=== PATIENT | female | born 1985 | race Two or more races ===

== ENCOUNTER 2020-08-08 17:43 | Inpatient (IN) | payer MEDICAID ==
[~2020-08-08] VITALS: Ht 165.1 cm; Wt 162.8 kg
[~2020-08-08 17:43] MED LIST: CLINDAMYCIN HC300 MG ORAL; IBUPROFEN600 MG ORAL; NORCO 5-325 TA1 EACH ORAL
[2020-08-08 18:08] VITALS: BP 159/93
[2020-08-08 18:46] LABS: APPEARANCE,URINE CLOUDY; BILIRUBIN, URINE NEGATIVE (NEGATIVE); COLOR,URINE YELLOW; GLUCOSE, URINE (UA) 4+ (NEGATIVE); KETONES,URINE 1+ (NEGATIVE); LEUKOCYTE ESTERASE ,URINE 1+ (NEGATIVE); NITRITE,URINE NEGATIVE (NEGATIVE); PH,URINE 5 (4.5-8.0); PROTEIN,URINE 3+ (NEGATIVE); UROBILINOGEN,URINE NORMAL MG/DL (0.0-1.0)
[2020-08-08] MEDS ORDERED: Ketorolac 30mg Inj IM ONE (19:00)
--- NOTE | 2020-08-08 19:59 | Emergency Room Report ---
History of Present Illness General Chief Complaint: Abdominal Pain Source: Patient (Renea Maldonado) Present Illness HPI 35-year-old female presents to the emergency department complaining of 10 out of 10 severity left-sided flank pain x3 days. Patient reports she has not taken any medication in an attempt to relieve her symptoms. She denies strenuous activities. Patient reports pain is significantly exacerbated upon palpation or movement of the torso. She denies cough, fevers, chills, abdominal pain or tenderness. Patient denies hematuria, dysuria, urinary frequency or urgency. Patient reports she is on her menstrual cycle. She denies . She denies history of renal calculi. She denies midline spinal tenderness or pain. She denies nausea or vomiting. She denies rashes. Denies numbness tingling or loss of sensation or gross motor movements of the extremities, incontinence of bowel or bladder. Denies CP, Palpitations, LOC, AMS, dizziness, Changes in Vision, weakness or a sudden severe headache. Denies PMhx. reports DM in her family. Denies family hx of cancer. (Renea Maldonado) Allergies: Coded Allergies: PENICILLINS (Unverified Allergy, Unknown, 09/28/14) COVID-19 Screening Contact w/high risk pt: No Experienced COVID-19 symptoms?: No COVID-19 Testing performed ANALYTICAL CLERK: No (Renea Maldonado) Patient History Past Medical History: see triage record Past Surgical History: none Pertinent Family History: none Last Menstrual Period: 08/08/2020 Now: No Reviewed Nursing Documentation: PMH: Agreed; PSxH: Agreed (Renea Maldonado) Nursing Documentation-PMH Past Medical History: No Stated History (Renea Maldonado) Review of Systems All Other Systems: negative except mentioned in HPI (Renea Maldonado) Physical Exam Vital Signs Date Time Temp Pulse Resp B/P (MAP) Pulse Ox O2 Delivery O2 Flow Rate FiO2 08/08/20 17:45 97.2 105 19 159/93 (115) 97 Room Air Sp02 EP Interpretation: reviewed, normal General Appearance: obese Head: normocephalic, atraumatic Eyes: bilateral eye normal inspection, bilateral eye PERRL ENT: hearing grossly normal, normal voice Neck: full range of motion Respiratory: chest non-tender, lungs clear, normal breath sounds, speaking full sentences Cardiovascular #1: regular rate, rhythm, no edema Gastrointestinal: normal bowel sounds, non tender, soft, non-distended, no guarding, overweight Rectal: deferred Genitourinary: normal inspection, CVA tenderness (L) Musculoskeletal: back normal, normal range of motion, gait/station normal, tender - TTP in the left flank area to superficial and deep palpation Neurologic: alert, motor strength/tone normal, oriented x3, sensory intact, responsive, speech normal Psychiatric: judgement/insight normal Skin: no rash, normal color Lymphatic: no adenopathy (Renea Maldonado) Medical Decision Making PA Attestation Dr. Almaguer is my supervising Physician whom patient management has been discussed with. (Renea Maldonado) Diagnostic Impression: Primary Impression: Retroperitoneal mass ER Course 35-year-old female presents to the emergency department complaining of 10 out of 10 severity left-sided flank pain x3 days. Patient reports she has not taken any medication in an attempt to relieve her symptoms. She denies strenuous activities. Patient reports pain is significantly exacerbated upon palpation or movement of the torso. She denies cough, fevers, chills, abdominal pain or tenderness. Patient denies hematuria, dysuria, urinary frequency or urgency. Patient reports she is on her menstrual cycle. She denies . She denies history of renal calculi. She denies midline spinal tenderness or pain. She denies nausea or vomiting. She denies rashes. Denies numbness tingling or loss of sensation or gross motor movements of the extremities, incontinence of bowel or bladder. Denies CP, Palpitations, LOC, AMS, dizziness, Changes in Vision, weakness or a sudden severe headache. Denies PMhx. reports DM in her family. Denies family hx of cancer. Ddx considered but are not limited to Diverticulitis, acute appendicitis, diarrhea,UC, PUD, GE, pancreatitis, gallstone, kidney stone, pyelonephritis, UTI, obstruction. Vital signs: are WNL, pt. is afebrile H&PE are most consistent with Left flank pain, most likely MSK, will r/o pyelo and calculi. ORDERS: - UA: 5+ blood, 4+ Protein , elevated glucose and 1+ ketones. Elevated WBC's as well . few bacteria vs squamous, --- urine will reflux to culture. - CT abdomen and pelvis no contrast: Large mass in the left upper quadrant in the retroperitoneal space displacing the spleen and the left kidney -CBC, CMP, Lipase: Pending at time of sign out. ED INTERVENTIONS: -- Lidoderm Tp -Toradol 30mg IM -IV access and 1 L NS bolus -4 mg of morphine DISPOSITION: at this time pt. will be admitted for intractable pain and abdominal mass. Pt. signed out to attending physician pending labs and accepting internal medicine physician. (eRnea Maldonado) ER Course I personally evaluated the patient and agree with the above assessment and plan. Patient admitted to [facility] in stable condition. (Benedict Almaguer M.D.) CT/MRI/US Diagnostic Results CT/MRI/US Diagnostic Results : Imaging Test Ordered: - CT abdomen and pelvis no contrast: Impression " IMPRESSION: 1. Large left upper abdominal retroperitoneal mass suspicious for neoplasm. 2. Hepatic steatosis. 3. Cholelithiasis without acute cholecystitis. 4. Ventral abdominal wall hernia containing fat and omental vessels. ." --Per official radiology report- Please see report for specific details. (Renea Maldonado) Last Vital Signs Date Time Temp Pulse Resp B/P (MAP) Pulse Ox O2 Delivery O2 Flow Rate FiO2 08/08/20 18:08 100 19 Room Air 08/08/20 18:08 97.2 159/93 97 Status: improved (Renea Maldonado) Disposition: ADMITTED INPATIENT Condition: Serious Signed Out To: Dr. Almaguer (Renea Maldonado) Renea Maldonado Aug 08, 2020 19:59 Benedict Almaguer M.D. Aug 08, 2020 22:28
--- NOTE | 2020-08-08 20:26 | Diagnostic Imaging Report ---
EXAM: CT Abdomen and Pelvis Without Intravenous Contrast CLINICAL HISTORY: PAIN TECHNIQUE: Axial computed tomography images of the abdomen and pelvis without intravenous contrast. CTDI is 83 mGy and DLP is 3241 mGy-cm. One or more of the following dose reduction techniques were used: automated exposure control, adjustment of the mA and/or kV according to patient size, use of iterative reconstruction technique. COMPARISON: No relevant prior studies available. FINDINGS: ABDOMEN: Liver: Diffuse low-attenuation in the liver. Hepatomegaly. Gallbladder and bile ducts: Gallstones in the lumen and neck. No ductal dilation. Pancreas: See below. Spleen: See below. Adrenals: Unremarkable. No mass. Kidneys and ureters: See below. Stomach and bowel: Mild colonic diverticulosis without acute diverticulitis. No obstruction. PELVIS: Appendix: No findings to suggest acute appendicitis. Bladder: Unremarkable. No stones. Reproductive: Unremarkable as visualized. ABDOMEN and PELVIS: Intraperitoneal space: Unremarkable. No free air. No significant fluid collection. Retroperitoneal space: Large soft tissue retroperitoneal mass in the left upper quadrant measuring approximately 14.9 x 14.0 x 20.0 cm in transverse, AP and craniocaudal dimensions. This displaces the left kidney anteriorly. It displaces the body and color pancreas superiorly. It compresses the spleen laterally. This extends posteriorly and insinuates along the left hemidiaphragm. Bones/joints: Degenerative changes in the sacroiliac joints. Degenerative disc disease in the spine. No acute fracture. No dislocation. Soft tissues: Moderate sized ventral abdominal wall hernia containing fat and omental vessels. Vasculature: Unremarkable. No abdominal aortic aneurysm. Lymph nodes: Unremarkable. No enlarged lymph nodes. IMPRESSION: 1. Large left upper abdominal retroperitoneal mass suspicious for neoplasm. 2. Hepatic steatosis. 3. Cholelithiasis without acute cholecystitis. 4. Ventral abdominal wall hernia containing fat and omental vessels. EXAM: CT Chest Without Intravenous Contrast CLINICAL HISTORY: PAIN TECHNIQUE: Axial computed tomography images of the chest without intravenous contrast. CTDI is 83 mGy and DLP is 3241 mGy-cm. One or more of the following dose reduction techniques were used: automated exposure control, adjustment of the mA and/or kV according to patient size, use of iterative reconstruction technique. COMPARISON: No relevant prior studies available. FINDINGS: Lungs: There is some mild mosaic attenuation in the lungs. Subsegmental atelectasis in the right upper lobe and left lung base. No lung consolidation. Pleural space: Unremarkable. No pneumothorax. No significant effusion. Heart: Unremarkable. No cardiomegaly. No significant pericardial effusion. Bones/joints: Unremarkable. No acute fracture. No dislocation. Soft tissues: Unremarkable. Vasculature: Unremarkable. No thoracic aortic aneurysm. Lymph nodes: Unremarkable. No enlarged lymph nodes. Upper abdomen: Refer to the abdomen CT regarding the partially visualized mass in the left upper quadrant and along the left hemidiaphragm posteriorly. IMPRESSION: No acute disease.
[2020-08-08] MEDS ORDERED: HYDROcodone/Acetamin 5/325 tab ORAL ONE (20:30)
[2020-08-08] MEDS ORDERED: Morphine Sulfate 4mg/ml Inj (IV USE ONLY) IVP ONE (20:45)
[2020-08-08 21:00] VITALS: BP 140/89
[2020-08-08 21:01] LABS: BASOPHILS % (AUTO) 0.8 % (0.0-2.0); EOSINOPHILS % (AUTO) 1.3 % (0.0-3.0); HEMATOCRIT 47.1 % (37.0-47.0); HEMOGLOBIN 15.3 G/DL (12.0-16.0); LYMPHOCYTES % (AUTO) 43.2 % (20.0-45.0); MEAN CORPUSCULAR VOLUME 86 FL (80-99); MONOCYTES % (AUTO) 3.8 % (1.0-10.0); NEUTROPHILS % (AUTO) 50.8 % (45.0-75.0); PLATELET COUNT 335 K/UL (150-450); RED BLOOD COUNT 5.48 M/UL (4.20-5.40); RED CELL DISTRIBUTION WIDTH 13.8 % (11.6-14.8); WHITE BLOOD COUNT 9.1 K/UL (4.8-10.8)
[2020-08-08 21:14] LABS: ANION GAP 9 mmol/L (5-15); BLOOD UREA NITROGEN 13 mg/dL (7-18); CALCIUM 8.6 MG/DL (8.5-10.1); CARBON DIOXIDE 26 MMOL/L (21-32); CHLORIDE 102 MMOL/L (98-107); CREATININE 0.8 MG/DL (0.55-1.30); POTASSIUM 3.6 MMOL/L (3.5-5.1); SODIUM 137 MMOL/L (136-145)
[2020-08-08 21:19] LABS: ALANINE AMINOTRANSFERASE 28 U/L (12-78); ALBUMIN 3.2 G/DL (3.4-5.0); ALBUMIN/GLOBULIN RATIO 0.6 (1.0-2.7); ALKALINE PHOSPHATASE 91 U/L (46-116); ASPARTATE AMINO TRANSFERASE 15 U/L (15-37); BILIRUBIN,TOTAL 0.5 MG/DL (0.2-1.0)
[2020-08-08 23:00] VITALS: BP 142/80
[2020-08-09] MEDS: Morphine Sulfate 2mg/ml Inj(IV/IM USE ONLY) IVP PRN ×4 (01:06→17:15)
[2020-08-09 04:00] VITALS: BP 156/95
[2020-08-09 08:00] VITALS: BP 156/95
[2020-08-09] MEDS ORDERED: Gadavist 7.5mMol/7.5ml vial IV PRN (10:00)
--- NOTE | 2020-08-09 10:35 | Consultation ---
History of Present Illness General Date patient seen: Aug 09, 2020 Reason for Hospitalization: Abdominal Pain Present Illness HPI This is a very pleasant 35-year-old female with no prior medical surgical history that presented to [facility] complaining of left flank pain for 3 days 10 out of [address] was ordered and identified a left retroperitoneal mass large. Patient admitted for care management surgery called to evaluate patient seen, patient [place], chart reviewed. Denies any knowledge of this mass prior denies any history denies any recent changes over the past 3 days of having progressively increasing left flank pain. States now feels little bit better. No nausea vomiting fever chills. normal bowel function. Has been tolerating diet prior. Allergies: Coded Allergies: PENICILLINS (Unverified Allergy, Unknown, 09/28/14) COVID-19 Screening Contact w/high risk pt: No Experienced COVID-19 symptoms?: No Medication History Scheduled PRN Hydrocodone Bit/Acetaminophen 5-325* (Leroy 5-325*), 1 TAB ORAL Q6H PRN for For Pain Ibuprofen (Motrin), 600 MG ORAL Q8H PRN for For Pain Discontinued Medications Clindamycin Hcl (Clindamycin Hcl), 300 MG ORAL THREE TIMES A DAY Discontinued Reason: Therapy completed Ibuprofen (Motrin), 600 MG ORAL THREE TIMES A DAY Discontinued Reason: Pt stopped taking med Patient History History Provided By: Patient, Medical Record, PMD Healthcare decision maker Resuscitation status Advanced Directive on File Past Medical/Surgical History Past Medical/Surgical History: (1) Left elbow contusion (2) Fall (3) Contusion of right leg (4) Toe fracture, right (5) Toe fracture, right (6) Contusion of right leg (7) Retroperitoneal mass (8) Pain Review of Systems Review of Symptoms General ROS: no weight loss or fever Psychological ROS: no depression or mood changes, no memory loss Ophthalmic ROS: no visual changes or eye irritation ENT ROS: no nasal congestion, hearing loss, dizziness Allergy and Immunology ROS: no allergic symptoms or urticaria Hematological and Lymphatic ROS: no swollen glands, unusual bleeding or bruising Endocrine ROS: no polyuria, polydipsia, weight changes, temperature intolerance Respiratory ROS: no cough, shortness of breath, or wheezing Cardiovascular ROS: no chest pain or dyspnea on exertion Gastrointestinal ROS: denies abdominal pain, bright red blood in stool. left flank discomfort Musculoskeletal ROS: no myalgias or arthralgias Neurological ROS: no TIA or stroke symptoms Dermatological ROS: no new or changing skin lesions, rashes or pruritis Physical Exam Physical Exam General appearance: alert, cooperative, no distress, appears stated age Head: Normocephalic, without obvious abnormality, atraumatic Eyes: conjunctivae/corneas clear. PERRL, EOM's intact. Fundi benign Throat: Lips, mucosa, and tongue normal. Teeth and gums normal Neck: supple, symmetrical, trachea midline, no adenopathy, thyroid: not enlarged, symmetric, no tenderness/mass/nodules, no carotid bruit and no JVD Lungs: clear to auscultation bilaterally Heart: regular rate and rhythm, S1, S2 normal, no murmur, click, rub or gallop Abdomen: soft, non-tender. Bowel sounds normal. No masses, no organomegaly. no palpable mass Extremities: extremities normal, atraumatic, no cyanosis or edema Pulses: 2+ and symmetric Skin: Skin color, texture, turgor normal. No rashes or lesions Neurologic: Grossly normal Last 24 Hour Vital Signs Date Time Temp Pulse Resp B/P (MAP) Pulse Ox O2 Delivery O2 Flow Rate FiO2 08/09/20 09:00 Room Air 08/09/20 08:00 97.9 90 20 156/95 (115) 95 08/09/20 04:00 97.3 84 18 156/95 (115) 94 08/09/20 01:58 Room Air 08/08/20 23:20 98.1 88 20 142/80 98 Room Air 08/08/20 23:00 98.1 88 20 142/80 98 Room Air 08/08/20 21:00 98.0 98 20 140/89 98 Room Air 08/08/20 20:30 97.2 08/08/20 18:08 100 19 Room Air 08/08/20 18:08 97.2 100 19 159/93 97 Room Air 08/08/20 17:45 97.2 105 19 159/93 (115) 97 Room Air Intake and Output 08/08/20 08/09/20 19:00 07:00 Intake Total 425 ml Balance 425 ml Intake IV Total 225 ml Other 200 ml # Voids 1 2 Laboratory Tests Test 08/08/20 18:30 08/08/20 20:50 Urine Color Yellow Urine Appearance Cloudy Urine pH 5 (4.5-8.0) Urine Specific [place] 1.020 (1.005-1.035) Urine Protein 3+ (NEGATIVE) H Urine Glucose (UA) 4+ (NEGATIVE) H Urine Ketones 1+ (NEGATIVE) H Urine Blood 5+ (NEGATIVE) H Urine Nitrite Negative (NEGATIVE) Urine Bilirubin Negative (NEGATIVE) Urine Urobilinogen Normal MG/DL (0.0-1.0) Urine Leukocyte Esterase 1+ (NEGATIVE) H Urine RBC Tntc /HPF (0 - 2) H Urine WBC 5-10 /HPF (0 - 2) H Urine Squamous Epithelial Cells Few /LPF (NONE/OCC) Urine Bacteria Few /HPF (NONE) Urine HCG, Qualitative Negative (NEGATIVE) White Blood Count 9.1 K/UL (4.8-10.8) Red Blood Count 5.48 M/UL (4.20-5.40) H Hemoglobin 15.3 G/DL (12.0-16.0) Hematocrit 47.1 % (37.0-47.0) H Mean Corpuscular Volume 86 FL (80-99) Mean Corpuscular Hemoglobin 28.0 PG (27.0-31.0) Mean Corpuscular Hemoglobin Concent 32.6 G/DL (32.0-36.0) Red Cell Distribution Width 13.8 % (11.6-14.8) Platelet Count 335 K/UL (150-450) Mean Platelet Volume 6.1 FL (6.5-10.1) L Neutrophils (%) (Auto) 50.8 % (45.0-75.0) Lymphocytes (%) (Auto) 43.2 % (20.0-45.0) Monocytes (%) (Auto) 3.8 % (1.0-10.0) Eosinophils (%) (Auto) 1.3 % (0.0-3.0) Basophils (%) (Auto) 0.8 % (0.0-2.0) Sodium Level 137 MMOL/L (136-145) Potassium Level 3.6 MMOL/L (3.5-5.1) Chloride Level 102 MMOL/L (98-107) Carbon Dioxide Level 26 MMOL/L (21-32) Anion Gap 9 mmol/L (5-15) Blood Urea Nitrogen 13 mg/dL (7-18) Creatinine 0.8 MG/DL (0.55-1.30) Estimat Glomerular Filtration Rate > 60 mL/min (>60) Glucose Level 293 MG/DL (74-106) H Calcium Level 8.6 MG/DL (8.5-10.1) Total Bilirubin 0.5 MG/DL (0.2-1.0) Aspartate Amino Transf (AST/SGOT) 15 U/L (15-37) Alanine Aminotransferase (ALT/SGPT) 28 U/L (12-78) Alkaline Phosphatase 91 U/L (46-116) Total Protein 8.4 G/DL (6.4-8.2) H Albumin 3.2 G/DL (3.4-5.0) L Globulin 5.2 g/dL Albumin/Globulin Ratio 0.6 (1.0-2.7) L Lipase 128 U/L (73-393) Height (Feet): 5 Height (Inches): 5.00 Weight (Pounds): 359 Medications Current Medications Medications (Trade) Dose Ordered Sig/Mendez Route PRN Reason Start Time Stop Time Status Last Admin Dose Admin Gadobutrol (Gadavist) 7.5 mmol NOW PRN IV Radiology Procedure 08/09/20 10:00 08/13/20 09:59 Morphine Sulfate (Morphine Sulfate) 2 mg Q6HR PRN IVP For Pain 08/09/20 01:00 08/16/20 00:59 08/09/20 08:27 Ondansetron HCl (Zofran) 4 mg Q4HR PRN IVP Nausea & Vomiting 08/09/20 01:00 09/08/20 00:59 Sodium Chloride 1,000 ml @ 75 mls/hr [id number] IV 08/09/20 01:00 09/08/20 00:59 08/09/20 01:06 Assessment/Plan Problem List: (1) Retroperitoneal mass Assessment & Plan: 35-year-old female with recently diagnosed large left upper quadrant retroperitoneal soft tissue mass. An MRI was ordered but unfortunately patient is BMI 59 and too large for our scanner. Labs are normal no bleeding pain is improving Exam benign Patient is likely had this for some time now given its size. There is strong concern and consideration for retroperitoneal mass neoplasm. Strongly recommend outpatient follow-up with oncology center for considerations of an MRI that could support her size. Furthermore outpatient surgical oncology evaluation No acute surgical intervention at this time Okay for diet DC planning Thank you for letting participate patient's care ABDOMEN: Liver: Diffuse low-attenuation in the liver. Hepatomegaly. Gallbladder and bile ducts: Gallstones in the lumen and neck. No ductal dilation. Pancreas: See below. Spleen: See below. Adrenals: Unremarkable. No mass. Kidneys and ureters: See below. Stomach and bowel: Mild colonic diverticulosis without acute diverticulitis. No obstruction. PELVIS: Appendix: No findings to suggest acute appendicitis. Bladder: Unremarkable. No stones. Reproductive: Unremarkable as visualized. ABDOMEN and PELVIS: Intraperitoneal space: Unremarkable. No free air. No significant fluid collection. Retroperitoneal space: Large soft tissue retroperitoneal mass in the left upper quadrant measuring approximately 14.9 x 14.0 x 20.0 cm in transverse, AP and craniocaudal dimensions. This displaces the left kidney anteriorly. It displaces the body and color pancreas superiorly. It compresses the spleen laterally. This extends posteriorly and insinuates along the left hemidiaphragm. Bones/joints: Degenerative changes in the sacroiliac joints. Degenerative disc disease in the spine. No acute fracture. No dislocation. Soft tissues: Moderate sized ventral abdominal wall hernia containing fat and omental vessels. Vasculature: Unremarkable. No abdominal aortic aneurysm. Lymph nodes: Unremarkable. No enlarged lymph nodes. IMPRESSION: 1. Large left upper abdominal retroperitoneal mass suspicious for neoplasm. 2. Hepatic steatosis. 3. Cholelithiasis without acute cholecystitis. 4. Ventral abdominal wall hernia containing fat and omental vessels. ICD Codes: R19.00 - Intra-abdominal and pelvic swelling, mass and lump, unspecified site SNOMED: 63406961 (2) Fall ICD Codes: W19.XXXA - Unspecified fall, initial encounter SNOMED: 3141954 (3) Pain ICD Codes: R52 - Pain, unspecified SNOMED: 35449455 (4) Toe fracture, right ICD Codes: S92.911A - Unsp fracture of right toe(s), init for clos fx SNOMED: 74998332 (5) Toe fracture, right ICD Codes: S92.911A - Unsp fracture of right toe(s), init for clos fx SNOMED: 22718503 (6) Contusion of right leg ICD Codes: S80.11XA - Contusion of right lower leg, initial encounter SNOMED: 12629439 (7) Contusion of right leg ICD Codes: S80.11XA - Contusion of right lower leg, initial encounter SNOMED: 74005067 (8) Left elbow contusion ICD Codes: S50.02XA - Contusion of left elbow, initial encounter SNOMED: 54766095 Mathieu Morales Aug 09, 2020 10:35
[2020-08-09 11:35] VITALS: BP 156/108
[2020-08-09 17:00] VITALS: BP 169/98
--- NOTE | 2020-08-09 17:45 | History and Physical Report ---
DATE OF ADMISSION: 08/08/2020 HISTORY OF PRESENT ILLNESS: This is a 35-year-old obese female who came to the emergency room for a retroperitoneal mass, fall, pain, and the patient has comorbid obesity. PAST MEDICAL HISTORY: Comorbid obesity. PHYSICAL EXAMINATION: GENERAL: This is an elderly obese female. VITAL SIGNS: Currently blood pressure is slightly high, 156/108, pulse 104, respirations 20, temperature 97.7. HEENT: NAD. CHEST: Bilaterally clear. CARDIOVASCULAR: Regular rhythm. ABDOMEN: Abdomen was distended. Mild tenderness. EXTREMITIES: CCE. LABORATORY DATA: White count is 9.1, hemoglobin 15. Chemistry panel, sodium 137, potassium 3.6, glucose 293, BUN 38, creatinine 2.8, glucose 3.2. IMAGING: The patient has a CT of abdomen and pelvis showing a large left upper abdominal retroperitoneal mass, suspicious neoplasm cholelithiasis. ASSESSMENT: 1. Abdominal pain, abdominal mass. 2. Hypokalemia. 3. Comorbid obesity. PLAN: We will consider surgery consult. Continue pain medication. The patient was given morphine. Continue Zofran. The patient is waiting for MRI. for the MRI, and probably the surgery consult was obtained. Benjamin Mcintosh M.D. DR: MARC JOB#: [id number] CC:
--- NOTE | 2020-08-11 11:55 | Discharge Summary ---
Discharge Summary Discharge Summary _ DATE OF ADMISSION: 08/08/2020 DATE OF DISCHARGE: 08/09/2020 DISCHARGED BY: Dr. Mcintosh REASON FOR ADMISSION: 35 years old female , morbidly obese, with no significant past medical history, presented to emergency department complaining of left-sided flank pain for 3 days , 10 out of 10 in the severity. She denied strenuous activity. She denied cough , fevers, chills. No abdominal pain , or vomiting. No hematuria , dysuria no urinary frequency. Patient was on her menstrual cycle. She denied . She denied history of renal stones. She denied midline spinal tenderness . CT scan of the abdomen and pelvis revealed large left upper abdominal retroperitoneal mass suspicious for neoplasm. Hepatic steatosis. Cholelithiasis without evidence of acute cholecystitis. Ventral abdominal wall hernia containing fat and omental vessels. Laboratory work-up revealed stable hemoglobin and hematocrit. No leukocytosis. Chemistry showed stable electrolytes, renal parameters, and LFT. Lipase 128. Urinalysis revealed +3 protein, +4 glucose, 5-10 pyuria, few bacteria, +1 leukocyte esterase. Urine test was negative. \ Patient received analgesic and admitted to medical surgical floor with diagnosis of retroperitoneal mass. CONSULTANTS: surgery Dr. Morales [facility]RSE: Patient admitted to medical surgical floor. Patient was on IV fluids. Pain management was addressed. Antiemetic provided as needed supportive care provided. Surgeon seen and evaluated patient MRI of the abdomen was ordered , but unfortunately unable to be done due to patient's body habitus. Abdominal exam appeared to be benign. Laboratory work-up stable. Pain improved. There was a strong consideration for retroperitoneal neoplasm. Surgeon spoke with the patient and explained outpatient follow-up with oncology center for MRI that could support her size along with outpatient surgical oncology evaluation. No acute surgical intervention was necessary at this time. Patient was able to tolerate diet , pain was controlled. Patient was ready for discharge home with outpatient follow-up . FINAL DIAGNOSES: Retroperitoneal mass, concerning for malignancy Morbid obesity DISCHARGE MEDICATIONS: See Medication Reconciliation list. DISCHARGE INSTRUCTIONS: Patient was discharged home with home health services. Follow up with primary care provider in one week. I have been assigned to dictate discharge summary for this account. I was not involved in the patient's management. Alexus Burdick NP Aug 11, 2020 11:55
== END 2020-08-09 18:29 | disposition home or self-care (01) | DRG 694 ==
LOC: EMR 20:45 → 4E 22:05 → EDBEDREQ 22:36
DX: C48.0 Malignant neoplasm of retroperitoneum (principal); E66.9 Obesity, unspecified; Z68.43 Body mass index [BMI] 50.0-59.9, adult; E66.01 Morbid (severe) obesity due to excess calories; E87.6 Hypokalemia; Z88.0 Allergy status to penicillin; K76.0 Fatty (change of) liver, not elsewhere classified; K80.20 Calculus of gallbladder without cholecystitis without obstruction; K43.9 Ventral hernia without obstruction or gangrene; S92.912A Unspecified fracture of left toe(s), initial encounter for closed fracture; S92.911A Unspecified fracture of right toe(s), initial encounter for closed fracture; S80.11XA Contusion of right lower leg, initial encounter; S50.02XA Contusion of left elbow, initial encounter; W19.XXXA Unspecified fall, initial encounter
CPT/HCPCS: 36415; 71250; 74176; 80053; 81003; 81025; 83690; 85025; 96361; 96372; 96374; 99285; J7030